=== PATIENT | male | born 1985 | race Caucasian/White ===

== ENCOUNTER 2022-03-07 15:17 | Inpatient (IN) ==
[2022-03-07 19:11] LABS: Basophils % 0.5 %; Eosinophils % 0.8 %; Hematocrit 41.7 % (37.5-50.1); Hemoglobin 14.2 g/dL (12.9-16.9); Immature Granulocytes % 0.3 % (0-4); Lymphocytes # 1.2 K/mcL (0.6-4.6); Lymphocytes % 33.5 %; Mean Corpuscular HGB Conc 34.1 g/dL (31.6-35.5); Mean Corpuscular Hemoglobin 30.5 pg (28.0-33.3); Mean Corpuscular Volume 89.5 fL (83.0-100.0); Mean Platelet Volume 9.6 fL (9.4-12.4); Monocytes # 0.4 K/mcL (0.0-1.3); Monocytes % 12.1 %; Neutrophils # 1.9 K/mcL (1.6-8.9); Platelet Count 150 K/mcL (140-400); Red Blood Count 4.66 M/mcL (4.19-5.50); Red Cell Distribution Width 12.8 % (11.5-14.5); Segmented Neutrophils % 52.8 %; White Blood Count 3.6 K/mcL (4.3-11.1)
[2022-03-07] MEDS ORDERED: 0.9 % Sodium Chloride 1,000 ML IV ONE (19:23)
[2022-03-07 19:27] LABS: BUN/Creatinine Ratio 10 (6-26); Blood Urea Nitrogen 10 mg/dL (6-20); Calcium 8.9 mg/dL (8.6-10.3); Carbon Dioxide 22 mEq/L (23-29); Chloride 105 mEq/L (98-107); Glucose 93 mg/dL (70-105); Osmolality,Calculated 279 (280-300); Potassium 3.5 mEq/L (3.5-5.1); Sodium 135 mEq/L (136-145)
[2022-03-07 19:28] LABS: Troponin I < 0.03 ng/mL (< 0.04)
[2022-03-07 19:34] LABS: Bilirubin,Urine Negative (Negative); Blood,Urine Negative (Negative); Clarity,Urine Clear (Clear); Color,Urine Light-Yellow (Yellow); Glucose,Urine (UA) 50 mg/dL (Normal); Ketones,Urine Negative (Negative); Leukocyte Esterase,Urine Negative (Negative); Mucus,Urine Few per lpf (None-Few); Nitrite,Urine Negative (Negative); Protein,Urine Trace mg/dL (Neg-Trace); RBC,Urine 0-3 per hpf (0-3); Specific Gravity,Urine 1.011 (1.010-1.025); Urobilinogen,Urine Normal (Normal); WBC,Urine 0-3 per hpf (0-3)
[2022-03-07 20:20] LABS: Adenovirus Not Detected (Not Detect); Bordetella Pertussis Not Detected (Not Detect); Chlamydophila pneumoniae Not Detected (Not Detect); Coronavirus 229E Not Detected (Not Detect); Coronavirus HKU1 Not Detected (Not Detect); Coronavirus NL63 Not Detected (Not Detect); Coronavirus OC43 Not Detected (Not Detect); Human Metapneumovirus Not Detected (Not Detect); Human Rhinovirus/Enterovirus Not Detected (Not Detect); Influenza A Subtype 2009 H1 Not Detected (Not Detect); Influenza B Not Detected (Not Detect); Mycoplasma pneumoniae Not Detected (Not Detect); Parainfluenza Virus 1 Not Detected (Not Detect); Parainfluenza Virus 2 Not Detected (Not Detect); Parainfluenza Virus 3 Not Detected (Not Detect); Parainfluenza Virus 4 Not Detected (Not Detect); Respiratory Syncytial Virus Not Detected (Not Detect); SARS-CoV-2 Not Detected (Not Detect)
[2022-03-07 20:27] LABS: Albumin 3.9 g/dL (3.5-5.7); Albumin/Globulin Ratio 1.6 (1.1-2.2); Bilirubin,Direct 0.1 mg/dL (0.0-0.2); Bilirubin,Indirect 0.8 mg/dL (0.0-1.0); Bilirubin,Total 0.9 mg/dL (0.3-1.0); Globulin 2.5 g/dL (2.4-3.5); Total Protein 6.4 g/dL (6.4-8.9)
[2022-03-07] MEDS ORDERED: Iopamidol - 370 500 ML MLS IVP ONE (20:50)
[2022-03-07] MEDS ORDERED: Ketorolac 30 MG/ML VIAL IVP ONE (23:56)
[2022-03-08 00:33] LABS: Amphetamine Screen,Urine Negative ng/mL (Cutoff=1000); Barbiturate Screen,Urine Negative ng/mL (Cutoff=200); Benzodiazepines Screen,Urine Negative ng/mL (Cutoff=200); Cannabinoid Screen,Urine Negative ng/mL (Cutoff = 50); Cocaine Screen,Urine Negative ng/mL (Cutoff= 300); Opiate Screen,Urine Negative ng/mL (Cutoff=300); Phencyclidine Screen,Urine Negative ng/mL (Cutoff=25)
[2022-03-08] MEDS ORDERED: Naloxone 0.4 MG/ML INJ IVP PRN (01:08)
[2022-03-08] MEDS ORDERED: Melatonin 3 MG TABLET PO PRN (01:08)
[2022-03-08] MEDS ORDERED: Ondansetron ODT 4 MG TAB.RAPDIS SL PRN (01:08)
[2022-03-08] MEDS ORDERED: Ringers Solution, Lactated 1,000 ML IVC SCH (01:45)
[2022-03-08] MEDS: Cefepime HCl 2,000 MG in 0.9 % Sodium Chloride 10 ML IVP SCH ×4 (05:14→20:20)
[2022-03-08] MEDS ORDERED: Ketorolac 30 MG/ML VIAL IVP ONE (06:31)
[2022-03-08 09:29] LABS: Albumin 3.7 g/dL (3.5-5.7); Albumin/Globulin Ratio 1.4 (1.1-2.2); Bilirubin,Total 0.8 mg/dL (0.3-1.0); Calcium 8.6 mg/dL (8.6-10.3); Globulin 2.6 g/dL (2.4-3.5); Phosphorous 2.6 mg/dL (2.7-4.5); Potassium 3.9 mEq/L (3.5-5.1); Total Protein 6.3 g/dL (6.4-8.9)
[2022-03-08 10:58] LABS: Hematocrit 39.3 % (37.5-50.1); Hemoglobin 13.4 g/dL (12.9-16.9); Mean Corpuscular HGB Conc 34.1 g/dL (31.6-35.5); Mean Corpuscular Hemoglobin 30.8 pg (28.0-33.3); Mean Corpuscular Volume 90.3 fL (83.0-100.0); Mean Platelet Volume 9.7 fL (9.4-12.4); Platelet Count 151 K/mcL (140-400); Red Blood Count 4.35 M/mcL (4.19-5.50); Red Cell Distribution Width 13.1 % (11.5-14.5); White Blood Count 3.7 K/mcL (4.3-11.1)
[2022-03-08] MEDS ORDERED: Gadolinium Contrast Agent (WT Based) IV PRN (13:54)
[2022-03-08] MEDS: Ketorolac 30 MG/ML VIAL IVP PRN ×2 (14:59→21:17)
[2022-03-08] MEDS ORDERED: Doxycycline 200 MG in 0.9 % Sodium Chloride 250 ML IVPB ONE (15:00)
[2022-03-08] MEDS: Doxycycline 100 MG in 0.9 % Sodium Chloride Mini Bag 100 ML IVPB SCH (15:09)
[2022-03-08 15:53] LABS: Neutrophils # 2.3 K/mcL (1.6-8.9); Segmented Neutrophils % 61.1 %
[2022-03-08 15:54] LABS: Basophils % 0.5 %; Eosinophils % 0.5 %; Immature Granulocytes % 0.3 % (0-4); Lymphocytes % 27.4 %; Monocytes # 0.4 K/mcL (0.0-1.3); Monocytes % 10.2 %
[2022-03-08] MEDS ORDERED: Prochlorperazine 10 MG/2 ML VIAL IVP ONE (21:42)
[2022-03-09] MEDS: Ketorolac 30 MG/ML VIAL IVP PRN ×3 (04:08→20:11)
[2022-03-09] MEDS: Cefepime HCl 2,000 MG in 0.9 % Sodium Chloride 10 ML IVP SCH ×3 (05:16→22:10)
[2022-03-09] MEDS: Doxycycline 100 MG in 0.9 % Sodium Chloride Mini Bag 100 ML IVPB SCH ×2 (05:22→17:45)
[2022-03-09 08:08] LABS: Basophils % 0.4 %; Eosinophils % 0.7 %; Hemoglobin 12.8 g/dL (12.9-16.9); Immature Granulocytes % 0.2 % (0-4); Lymphocytes # 1.1 K/mcL (0.6-4.6); Lymphocytes % 24.4 %; Mean Corpuscular HGB Conc 33.7 g/dL (31.6-35.5); Mean Corpuscular Hemoglobin 30.6 pg (28.0-33.3); Mean Corpuscular Volume 90.9 fL (83.0-100.0); Monocytes # 0.5 K/mcL (0.0-1.3); Monocytes % 10.3 %; Neutrophils # 2.9 K/mcL (1.6-8.9); Platelet Count 168 K/mcL (140-400); Red Blood Count 4.18 M/mcL (4.19-5.50); Red Cell Distribution Width 13.2 % (11.5-14.5); White Blood Count 4.5 K/mcL (4.3-11.1)
[2022-03-09 08:21] LABS: BUN/Creatinine Ratio 8 (6-26); Blood Urea Nitrogen 9 mg/dL (6-20); Calcium 8.5 mg/dL (8.6-10.3); Carbon Dioxide 21 mEq/L (23-29); Chloride 109 mEq/L (98-107); Glucose 100 mg/dL (70-105); Magnesium 1.9 mg/dL (1.6-2.6); Osmolality,Calculated 283 (280-300); Phosphorous 3.3 mg/dL (2.7-4.5); Potassium 3.9 mEq/L (3.5-5.1); Sodium 137 mEq/L (136-145)
[2022-03-09 08:45] LABS: C-Reactive Protein 24 mg/L (Less than 10)
[2022-03-09] MEDS ORDERED: SUMAtriptan 6 MG/0.5 ML SQ ONE (10:16)
[2022-03-09] MEDS ORDERED: Metoclopramide 10 MG/2 ML VIAL IVP ONE (10:16)
[2022-03-09] MEDS ORDERED: Vancomycin 1,500 MG/265 ML IV.SOLN IVPB ONE (10:20)
[2022-03-09] MEDS: 0.9 % Sodium Chloride 1,000 ML IVC SCH (11:55)
[2022-03-09] MEDS ORDERED: *HR* Heparin 5,000 UNIT/ML VIAL SQ SCH (18:00)
[2022-03-09] MEDS ORDERED: Prochlorperazine 10 MG/2 ML VIAL IVP ONE (21:50)
[2022-03-09] MEDS ORDERED: Ketorolac 30 MG/ML VIAL IVP ONE (21:50)
[2022-03-09] MEDS ORDERED: Vancomycin 1,500 MG/265 ML IV.SOLN IVPB SCH (23:00)
[2022-03-10] MEDS: Ketorolac 30 MG/ML VIAL IVP PRN ×3 (03:49→20:30)
[2022-03-10] MEDS: 0.9 % Sodium Chloride 1,000 ML IVC SCH ×2 (03:50→15:45)
[2022-03-10] MEDS: Doxycycline 100 MG in 0.9 % Sodium Chloride Mini Bag 100 ML IVPB SCH ×2 (05:32→18:58)
[2022-03-10] MEDS: Cefepime HCl 2,000 MG in 0.9 % Sodium Chloride 10 ML IVP SCH ×3 (05:36→20:19)
[2022-03-10] MEDS ORDERED: SUMAtriptan 6 MG/0.5 ML SQ ONE (08:45)
[2022-03-10] MEDS ORDERED: Acyclovir 800 MG in D5% in Water 250 ML IVPB SCH (09:00)
[2022-03-10 09:03] LABS: Basophils % 0.3 %; Eosinophils # 0.1 K/mcL (0.0-0.6); Eosinophils % 2.5 %; Hematocrit 36.4 % (37.5-50.1); Hemoglobin 12.4 g/dL (12.9-16.9); Immature Granulocytes % 0.3 % (0-4); Lymphocytes # 0.8 K/mcL (0.6-4.6); Lymphocytes % 21.3 %; Mean Corpuscular HGB Conc 34.1 g/dL (31.6-35.5); Mean Corpuscular Hemoglobin 31.1 pg (28.0-33.3); Mean Corpuscular Volume 91.2 fL (83.0-100.0); Mean Platelet Volume 8.9 fL (9.4-12.4); Monocytes # 0.3 K/mcL (0.0-1.3); Monocytes % 8.4 %; Neutrophils # 2.7 K/mcL (1.6-8.9); Platelet Count 176 K/mcL (140-400); Red Blood Count 3.99 M/mcL (4.19-5.50); Red Cell Distribution Width 13.1 % (11.5-14.5); Segmented Neutrophils % 67.2 %
[2022-03-10 09:15] LABS: BUN/Creatinine Ratio 9 (6-26); Blood Urea Nitrogen 9 mg/dL (6-20); Calcium 8.6 mg/dL (8.6-10.3); Carbon Dioxide 22 mEq/L (23-29); Chloride 110 mEq/L (98-107); Glucose 126 mg/dL (70-105); Magnesium 1.8 mg/dL (1.6-2.6); Osmolality,Calculated 284 (280-300); Phosphorous 3.1 mg/dL (2.7-4.5); Potassium 3.7 mEq/L (3.5-5.1); Sodium 137 mEq/L (136-145)
[2022-03-10] MEDS ORDERED: *HR* LORazepam 2 MG/ML VIAL IVP PRN (11:07)
[2022-03-10 13:27] LABS: Appearance,CSF Clear (Clear); Red Blood Cell,CSF < 2000 RBC/mcL
[2022-03-10 13:56] LABS: Glucose,CSF 62 mg/dL (40-70); Total Protein,CSF 44 mg/dL (15-45)
[2022-03-10] MEDS ORDERED: Acetaminophen IV 1,000 MG/100 ML BAG IVPB ONE (14:11)
[2022-03-10 14:15] LABS: Eosinophils,CSF 0 %
[2022-03-11] MEDS ORDERED: SUMAtriptan succinate 50 MG TABLET PO ONE ×3 (01:27→18:43)
[2022-03-11 02:06] LABS: Basophils % 0.3 %; Eosinophils # 0.1 K/mcL (0.0-0.6); Eosinophils % 3.2 %; Hematocrit 36.2 % (37.5-50.1); Hemoglobin 12.2 g/dL (12.9-16.9); Immature Granulocytes % 0.3 % (0-4); Lymphocytes % 26.3 %; Mean Corpuscular HGB Conc 33.7 g/dL (31.6-35.5); Mean Corpuscular Hemoglobin 31.2 pg (28.0-33.3); Mean Corpuscular Volume 92.6 fL (83.0-100.0); Mean Platelet Volume 8.6 fL (9.4-12.4); Monocytes # 0.3 K/mcL (0.0-1.3); Neutrophils # 2.3 K/mcL (1.6-8.9); Platelet Count 214 K/mcL (140-400); Red Blood Count 3.91 M/mcL (4.19-5.50); Segmented Neutrophils % 60.9 %; White Blood Count 3.8 K/mcL (4.3-11.1)
[2022-03-11 02:19] LABS: BUN/Creatinine Ratio 9 (6-26); Blood Urea Nitrogen 9 mg/dL (6-20); Calcium 8.5 mg/dL (8.6-10.3); Carbon Dioxide 24 mEq/L (23-29); Chloride 108 mEq/L (98-107); Glucose 100 mg/dL (70-105); Osmolality,Calculated 285 (280-300); Phosphorous 4.4 mg/dL (2.7-4.5); Potassium 3.7 mEq/L (3.5-5.1); Sodium 138 mEq/L (136-145)
[2022-03-11] MEDS: Cefepime HCl 2,000 MG in 0.9 % Sodium Chloride 10 ML IVP SCH (05:32)
[2022-03-11] MEDS: Doxycycline 100 MG in 0.9 % Sodium Chloride Mini Bag 100 ML IVPB SCH (05:33)
[2022-03-11] MEDS: Ketorolac 30 MG/ML VIAL IVP PRN (07:11)
[2022-03-11] MEDS ORDERED: Dexamethasone Sodium Phos/PF 10 MG/ML VIAL IVP ONE (10:33)
[2022-03-11] MEDS: Acyclovir 800 MG in D5% in Water 250 ML IVPB SCH ×2 (10:51→18:25)
[2022-03-11] MEDS: 0.9 % Sodium Chloride 1,000 ML IVC SCH ×2 (10:51→16:33)
[2022-03-11] MEDS ORDERED: *HR* HYDROcodone/Acet 7.5/325 mg TABLET PO PRN (12:16)
[2022-03-11] MEDS: *HR* HYDROcodone/Acet 7.5/325 mg TABLET PO PRN (22:14)
[2022-03-12] MEDS: Acyclovir 800 MG in D5% in Water 250 ML IVPB SCH ×3 (03:45→17:32)
[2022-03-12] MEDS: 0.9 % Sodium Chloride 1,000 ML IVC SCH ×2 (05:34→17:36)
[2022-03-12] MEDS: *HR* HYDROcodone/Acet 7.5/325 mg TABLET PO PRN ×3 (08:35→22:05)
[2022-03-12 09:20] LABS: Basophils % 0.1 %; Eosinophils % 0.6 %; Hematocrit 38.3 % (37.5-50.1); Hemoglobin 13.1 g/dL (12.9-16.9); Immature Granulocytes % 0.3 % (0-4); Lymphocytes # 1.3 K/mcL (0.6-4.6); Lymphocytes % 17.6 %; Mean Corpuscular HGB Conc 34.2 g/dL (31.6-35.5); Mean Corpuscular Hemoglobin 30.5 pg (28.0-33.3); Mean Corpuscular Volume 89.1 fL (83.0-100.0); Mean Platelet Volume 8.4 fL (9.4-12.4); Monocytes # 0.5 K/mcL (0.0-1.3); Monocytes % 6.6 %; Neutrophils # 5.4 K/mcL (1.6-8.9); Platelet Count 304 K/mcL (140-400); Red Cell Distribution Width 12.8 % (11.5-14.5); Segmented Neutrophils % 74.8 %
[2022-03-12 09:21] LABS: White Blood Count 7.2 K/mcL (4.3-11.1)
[2022-03-12 09:37] LABS: BUN/Creatinine Ratio 12 (6-26); Blood Urea Nitrogen 10 mg/dL (6-20); Calcium 9.2 mg/dL (8.6-10.3); Carbon Dioxide 21 mEq/L (23-29); Chloride 106 mEq/L (98-107); Glucose 145 mg/dL (70-105); Osmolality,Calculated 284 (280-300); Potassium 3.3 mEq/L (3.5-5.1); Sodium 136 mEq/L (136-145)
[2022-03-12] MEDS: Ketorolac 30 MG/ML VIAL IVP PRN (11:26)
[2022-03-12] MEDS: SUMAtriptan succinate 50 MG TABLET PO PRN ×2 (14:25→21:08)
[2022-03-13 02:00] LABS: Basophils % 0.3 %; Eosinophils # 0.1 K/mcL (0.0-0.6); Eosinophils % 1.4 %; Hematocrit 35.3 % (37.5-50.1); Hemoglobin 11.9 g/dL (12.9-16.9); Immature Granulocytes % 0.2 % (0-4); Lymphocytes # 1.1 K/mcL (0.6-4.6); Lymphocytes % 17.6 %; Mean Corpuscular HGB Conc 33.7 g/dL (31.6-35.5); Mean Corpuscular Hemoglobin 30.4 pg (28.0-33.3); Mean Corpuscular Volume 90.3 fL (83.0-100.0); Mean Platelet Volume 8.5 fL (9.4-12.4); Monocytes % 15.1 %; Neutrophils # 4.1 K/mcL (1.6-8.9); Platelet Count 279 K/mcL (140-400); Red Blood Count 3.91 M/mcL (4.19-5.50); Red Cell Distribution Width 12.8 % (11.5-14.5); Segmented Neutrophils % 65.4 %; White Blood Count 6.3 K/mcL (4.3-11.1)
[2022-03-13 02:21] LABS: Calcium 8.6 mg/dL (8.6-10.3); Potassium 3.5 mEq/L (3.5-5.1)
[2022-03-13] MEDS: Acyclovir 800 MG in D5% in Water 250 ML IVPB SCH ×2 (04:13→19:44)
[2022-03-13] MEDS: *HR* HYDROcodone/Acet 7.5/325 mg TABLET PO PRN (04:13)
[2022-03-13] MEDS ORDERED: Ondansetron 4 MG/2 ML VIAL IVP PRN (09:31)
[2022-03-13] MEDS ORDERED: Valproic Acid INJ 250 MG in 0.9 % Sodium Chloride 100 ML IVPB ONE (10:00)
[2022-03-13] MEDS ORDERED: methylPREDNISolone 250 MG in 0.9 % Sodium Chloride 50 ML IVPB ONE (10:00)
[2022-03-13 10:18] LABS: Bilirubin,Urine Negative (Negative); Blood,Urine Negative (Negative); Clarity,Urine Clear (Clear); Color,Urine Colorless (Yellow); Glucose,Urine (UA) Normal (Normal); Ketones,Urine Negative (Negative); Leukocyte Esterase,Urine Negative (Negative); Mucus,Urine Few per lpf (None-Few); Nitrite,Urine Negative (Negative); Protein,Urine 50 mg/dL (Neg-Trace); RBC,Urine 0-3 per hpf (0-3); Urobilinogen,Urine Normal (Normal); WBC,Urine 0-3 per hpf (0-3)
[2022-03-13] MEDS: 0.9 % Sodium Chloride 1,000 ML IVC SCH ×2 (10:56→22:02)
[2022-03-13] MEDS: SUMAtriptan succinate 50 MG TABLET PO PRN (20:52)
[2022-03-13 21:14] LABS: Calcium 9.1 mg/dL (8.6-10.3)
[2022-03-14] MEDS: Acyclovir 800 MG in D5% in Water 250 ML IVPB SCH ×2 (05:37→07:22)
[2022-03-14] MEDS: 0.9 % Sodium Chloride 1,000 ML IVC SCH ×2 (05:37→07:52)
[2022-03-14] MEDS: SUMAtriptan succinate 50 MG TABLET PO PRN (08:28)
[2022-03-14 09:08] LABS: Basophils % 0.1 %; Hematocrit 38.6 % (37.5-50.1); Hemoglobin 12.9 g/dL (12.9-16.9); Immature Granulocytes % 0.6 % (0-4); Lymphocytes # 1.4 K/mcL (0.6-4.6); Lymphocytes % 10.1 %; Mean Corpuscular HGB Conc 33.4 g/dL (31.6-35.5); Mean Corpuscular Hemoglobin 30.4 pg (28.0-33.3); Mean Corpuscular Volume 90.8 fL (83.0-100.0); Mean Platelet Volume 8.7 fL (9.4-12.4); Monocytes # 1.8 K/mcL (0.0-1.3); Monocytes % 13.2 %; Platelet Count 322 K/mcL (140-400); Red Blood Count 4.25 M/mcL (4.19-5.50)
[2022-03-14 09:10] LABS: Neutrophils # 10.4 K/mcL (1.6-8.9); White Blood Count 13.7 K/mcL (4.3-11.1)
[2022-03-14 09:22] LABS: Calcium 9.3 mg/dL (8.6-10.3); Magnesium 2.1 mg/dL (1.6-2.6); Phosphorous 3.7 mg/dL (2.7-4.5); Potassium 4.3 mEq/L (3.5-5.1)
[2022-03-14 10:46] VITALS: BP 148/82; PULSE 77; TEMP 98.1; O2SAT 96
== END 2022-03-14 12:31 | disposition home or self-care (01) | DRG 720 ==
LOC: 3BNU 15:17 → EMEROOARM 15:17 → SUATTDRO 03-08 11:20 → 3BNU 03-08 11:52 → SUATTDRO 03-10 08:35
PROVIDERS: ADMIT Internal Medicine; ATTEND Internal Medicine